=== PATIENT | male | born 1965 | race Caucasian/White ===

== ENCOUNTER 2020-02-25 15:26 | Emergency (ER) | payer OTHER ==
[~2020-02-25] VITALS: Ht 172.7 cm; Wt 74.8 kg
[~2020-02-25 15:26] MED LIST: ALEVE220 MG PO; CRESTOR; EZETIMIBE; NEXIUM; PRILOSEC 20 MG20 MG PO; PRINZIDE 20-121 EACH PO; STERAPRED DS10 MG PO; ZOCOR 20 MG TAB20 M1 PO
[2020-02-25] MEDS ORDERED: LIPITOR40 MG PO (15:38)
[2020-02-25] MEDS ORDERED: NORVASC 2.5 MG2.5 M1 (15:38)
[2020-02-25] MEDS ORDERED: NORCO 5-325 TA1 EAC2 PO (16:52)
[2020-02-25] MEDS ORDERED: NAPROSYN500 MG PO (16:52)
[2020-02-25] MEDS ORDERED: MEDROLDOSEPACK PO (16:52)
[2020-02-25 17:06] VITALS: BP 128/72
== END 2020-02-25 17:07 | disposition home or self-care (01) ==
LOC: M.ERS 15:26
DX: M75.41 Impingement syndrome of right shoulder (principal); I10 Essential (primary) hypertension; E78.00 Pure hypercholesterolemia, unspecified; K21.9 Gastro-esophageal reflux disease without esophagitis; Z79.899 Other long term (current) drug therapy; X50.0XXA Overexertion from strenuous movement or load, initial encounter; Y93.89 Activity, other specified; Y92.69 Other specified industrial and construction area as the place of occurrence of the external cause; Y99.9 Unspecified external cause status